=== PATIENT | female | born 1990 ===

== ENCOUNTER 2022-06-17 21:59 | Emergency (ER) | payer SELFPAY ==
[2022-06-17 22:11] VITALS: BP 121/81
[2022-06-18] MEDS ORDERED: CYCLOBENZAPRINE 10 MG TAB PO ONE (00:45)
[2022-06-18] MEDS ORDERED: KETOROLAC 10 MG TAB PO ONE (00:45)
[2022-06-18] MEDS ORDERED: oxyCODONE /ACETAMINOPHEN 5-325MG TAB PO ONE (00:45)
--- NOTE | 2022-06-18 03:58 | Emergency Department Report ---
ED Back Pain/Injury HPI - General Chief Complaint: Back Pain/Injury Stated Complaint: BACK PAIN Time Seen by Provider: 06/18/22 00:28 Source: patient Limitations: No Limitations - History of Present Illness Initial Comments: 32-year-old female presents to the emergency department for evaluation of lower back pain that started earlier today. She states that after getting out of her car she had a sudden pain to her left lower back that radiated up to her neck. She states that since then she has had persistent pain and problems walking. She denies fever, dysuria, abdominal pain, nausea, vomiting, and vaginal discharge. She states that pain is 9 out of 10. She states that she applied Lidoderm patches without any improvement. MD Complaint: back pain -: Sudden, This afternoon Similar Symptoms Previously: No Place: home Radiation: other (Neck) Severity: severe Severity scale (0 -10): 9 Quality: aching Consistency: constant Worsens With: movement Associated Symptoms: denies: confusion, weakness, chest pain, numbness, difficulty walking, cough, difficulty urinating, diaphoresis, incontinence, fever/chills, constipation, headaches, abdominal pain, loss of appetite, malaise, nausea/vomiting, rash, seizure, shortness of breath, syncope Treatments Prior to Arrival: other (Topical medicated patches) - Related Data Previous Rx's Medication Instructions Recorded Last Taken Type Cyclobenzaprine [Flexeril] 10 mg PO TID PRN #30 tab 06/18/22 Unknown Rx Ketorolac [Toradol] 10 mg PO Q6H PRN #12 tab 06/18/22 Unknown Rx Lidocaine [Lidoderm] 1 each TP DAILY PRN #10 patch 06/18/22 Unknown Rx Allergies Allergy/AdvReac Type Severity Reaction Status Date / Time No Known Allergies Allergy Verified 06/17/22 22:14 ED Review of Systems ROS: Stated complaint: BACK PAIN Other details as noted in HPI Comment: All other systems reviewed and negative Constitutional: denies: chills, fever Respiratory: denies: shortness of breath Cardiovascular: denies: chest pain, palpitations Gastrointestinal: denies: abdominal pain, nausea, vomiting Genitourinary: denies: urgency, dysuria, frequency, hematuria, discharge Musculoskeletal: back pain Neurological: denies: headache, weakness ED Past Medical Hx - Past Medical History Previous Medical History?: No - Surgical History Past Surgical History?: No - Social History Smoking Status: Unknown if ever smoked - Medications Home Medications: Home Medications Medication Instructions Recorded Confirmed Last Taken Type Cyclobenzaprine [Flexeril] 10 mg PO TID PRN #30 tab 06/18/22 Unknown Rx Ketorolac [Toradol] 10 mg PO Q6H PRN #12 tab 06/18/22 Unknown Rx Lidocaine [Lidoderm] 1 each TP DAILY PRN #10 patch 06/18/22 Unknown Rx ED Physical Exam - General Limitations: No Limitations General appearance: alert, in no apparent distress - Head Head exam: Present: atraumatic, normocephalic - Eye Eye exam: Present: normal appearance. Absent: conjunctival injection - Neck Neck exam: Present: normal inspection, full ROM. Absent: tenderness, lymphadenopathy - Respiratory Respiratory exam: Present: normal lung sounds bilaterally. Absent: respiratory distress, chest wall tenderness - Cardiovascular Cardiovascular Exam: Present: regular rate, normal heart sounds - GI/Abdominal GI/Abdominal exam: Present: soft, normal bowel sounds. Absent: distended, tenderness, guarding, rebound - Extremities Exam Extremities exam: Present: normal inspection. Absent: tenderness, normal capillary refill - Back Exam Back exam: Present: normal inspection, tenderness (Right lower). Absent: CVA tenderness (R), CVA tenderness (L), vertebral tenderness - Neurological Exam Neurological exam: Present: alert, oriented X3, CN II-XII intact, reflexes normal. Absent: motor sensory deficit - Psychiatric Psychiatric exam: Present: normal affect, normal mood - Skin Skin exam: Present: warm, dry, intact, normal color ED Course Vital Signs 06/17/22 22:11 Temperature 97.7 F Pulse Rate 82 Respiratory 20 Rate Blood Pressure 121/81 O2 Sat by Pulse 99 Oximetry ED Medical Decision Making - Medical Decision Making 32-year-old female presents to the emergency department for evaluation of lower back pain that started earlier today. She states that after getting out of her car she had a sudden pain to her left lower back that radiated up to her neck. She states that since then she has had persistent pain and problems walking. She denies fever, dysuria, abdominal pain, nausea, vomiting, and vaginal discharge. She states that pain is 9 out of 10. She states that she applied Lidoderm patches without any improvement. Patient took medication changes left without being discharged or reassessed. Critical care attestation.: If time is entered above; I have spent that time in minutes in the direct care of this critically ill patient, excluding procedure time. ED Disposition Clinical Impression: Eloped from emergency department Disposition: 07 LEFT AWOL/ELOPED Is pt being admited?: No Condition: Stable Prescriptions: Cyclobenzaprine [Flexeril] 10 mg PO TID PRN #30 tab PRN Reason: Muscle Spasm Lidocaine [Lidoderm] 1 each TP DAILY PRN #10 patch PRN Reason: Pain, Moderate (4-6) Ketorolac [Toradol] 10 mg PO Q6H PRN #12 tab PRN Reason: Pain
== END 2022-06-18 01:25 | disposition left against medical advice (07) ==
LOC: ED 21:59
DX: M54.50 Low back pain, unspecified (principal)
CPT/HCPCS: 99281; 99282